=== PATIENT | male | born 1960 | race Two or more races ===

== ENCOUNTER 2019-12-10 10:09 | Outpatient (CLI) | payer OTHER ==
[~2019-12-10 10:09] MED LIST: FLECTOR30 EA TP; NORFLEX100MG PO; VOLTAREN-XR100 MG PO
== END 2019-12-10 16:33 | disposition home or self-care (01) ==
LOC: OFIC 805 10:09
PROVIDERS: ATTEND Otolaryngology
DX: M62.838 Other muscle spasm (principal); H61.23 Impacted cerumen, bilateral; R42 Dizziness and giddiness; H90.3 Sensorineural hearing loss, bilateral

== ENCOUNTER → 2020-01-03 | Outpatient (CLI) | payer OTHER | END | disposition home or self-care (01) | LOC: OFIC 805 09:47 | PROVIDERS: ATTEND Otolaryngology | DX: M54.2 Cervicalgia (principal); M62.838 Other muscle spasm; R42 Dizziness and giddiness ==

== ENCOUNTER 2020-08-04 12:09 | Outpatient (CLI) | payer OTHER | END 2020-08-04 13:55 | disposition home or self-care (01) | LOC: OFIC 805 12:09 | PROVIDERS: ATTEND Otolaryngology Otology & Neurotology | DX: R42 Dizziness and giddiness (principal); H90.3 Sensorineural hearing loss, bilateral; H61.23 Impacted cerumen, bilateral; M54.2 Cervicalgia ==